=== PATIENT | female | born 1955 | race Caucasian/White ===

== ENCOUNTER → 2023-09-08 11:50 | Outpatient (REF) | payer OTHER, SELFPAY | LOC: RAD 11:50 | PROVIDERS: ATTENDING PHYSICIAN Nurse Practitioner Family | DX: M25.571 Pain in right ankle and joints of right foot (principal) | CPT/HCPCS: 73630 ==

== ENCOUNTER → 2023-09-17 11:00 | Outpatient (REF) | payer OTHER, SELFPAY | LOC: WDC 11:00 | PROVIDERS: ATTENDING PHYSICIAN Obstetrics & Gynecology; FAMILY PHYSICIAN Family Medicine | DX: Z12.31 Encounter for screening mammogram for malignant neoplasm of breast (principal) | CPT/HCPCS: 77063; 77067 ==

== ENCOUNTER 2023-10-13 07:28 | Inpatient (IN) | payer OTHER, SELFPAY ==
[2023-10-13 08:06] VITALS: BMI 23.6
[2023-10-13 08:12] VITALS: BP 131/88
[2023-10-13 08:51] LABS: Hematocrit 37.4 % (37.0-47.0); Hemoglobin 13.3 g/dL (12.0-16.0); Mean Corp Hgb Conc. 35.6 g/dL (33.0-37.0); Mean Corpuscular Hgb 32.9 pg (27.0-31.0); Mean Corpuscular Volume 92.6 fL (81.0-99.0); Mean Platelet Volume 9.5 fL (7.4-10.4); Platelet Count 267 10^3/uL (130-400); Red Blood Cell Count 4.04 10^6/uL (4.20-5.40); Red Cell Dist. Width 12.5 % (11.5-14.5); White Blood Cell Count 4.8 10^3/uL (4.8-10.8)
[2023-10-13] MEDS: ELIQUIS PO (08:59)
[2023-10-13] MEDS: PROTONIX PO (09:00)
[2023-10-13 09:04] LABS: ALT (SGPT) 27 U/L (0-35); AST (SGOT) 34 U/L (14-36); Albumin 4.7 g/dl (3.5-5.0); Alkaline Phosphatase 76 U/L (38-126); Blood Urea Nitrogen 16 mg/dl (7-17); Calcium 9.6 mg/dl (8.4-10.2); Carbon Dioxide 29 mmol/L (22-30); Chloride 99 mmol/L (98-107); Estimated Creatinine Clearance 76 ml/min; Glucose 102 mg/dl (70-99); Magnesium 2.3 mg/dl (1.6-2.3); Potassium 3.9 mmol/L (3.5-5.1); Sodium 134 mmol/L (135-145); Total Bilirubin 0.9 mg/dl (0.2-1.3); Total Protein 7.5 g/dl (6.3-8.2); eGFR > 60.00
[2023-10-13] MEDS: BETAPACE 160 MG PO ×2 (09:26→20:35)
[2023-10-13 09:48] VITALS: BMI 23.6
--- NOTE | 2023-10-13 09:59 | CM ---
Reviewed chart. Met with Mrs. Collins to review discharge plans. She states prior to admission she resides with her spouse in a two story home with three steps to enter. She states she has a full flight of steps to get to bedroom/full bathroom. She
states she has a powder room on the first floor. She states prior to admission she was independent with ambulation and adls. She states she does not have any DME in the home. She states she has a prescription plan and uses [facility]. Medical
work-up in progress. The discharge plan is to return home with her spouse when medically stable.
--- NOTE | 2023-10-13 10:59 | PTCARENOTE ---
Pt received as a direct admit this am for increased dose Sotolol. Ecg and labs completed. Pt denies any chest pain or sob. OOB ad zoey in the room. Monitor atach, rate in 70's to 80's.
[2023-10-13 11:39] VITALS: BP 126/87
--- NOTE | 2023-10-13 13:01 | CON.CAR ---
Addendum entered and electronically signed by Ned Azul MD 10/13/23 16:48:
Patient seen and examined
Agree with ITZEL Farias's notes and assessment
Agree ITZEL Farias's plan
ECGs reviewed with 2-1 atypical atrial tachycardia
Telemetry reviewed with rate control
QTc less than 500 ms after second dose of 160 mg sotalol
Examination:
H&T normocephalic atraumatic
JVP 6
Cor regular
Lungs:/Bilaterally
Abdomen soft nontender positive and sounds
Alert and x 3
PCP: Wallace Umanzor
CDY: Matt Christie
Impression:
Direct admission for higher dose sotalol loading
Paroxysmal Afib/tach
s/p PVI 09/2020
s/p PVI 01/21/21
s/p PVI 12/31/22Chronic sotalol therapy since 2020
Chronic Eliquis OAC
Markedly dilated RA/LA
s/p LUX ILR
Echo 05/26/23: EF 55%, severely dilated atria, mod MR
Plan:
-Patient came to today for sotalol loading. Patient was seen in the office 09/11/23 and as noted to be in atrial tachycardia. Patient has a h/o paroxysmal Afib/tach. Patient had PVIs 09/2020, 01/2021 and 12/31/22. Patient was loaded with sotalol after
her last PVI and she currently takes sotalol 120 mg BID. Patient reports that she is less fatigued in Atach vs Afib, but that overall her exercise tolerance is reduced on sotalol. Patient has not missed any doses of Eliquis. She denies chest pain or
SOB.
-QTc 454 ms by ECG on admission reviewed by me, she did not take her usual dose of sotalol 120 mg BID on the morning of admission. Patient was then given sotalol 160 mg x1 on 10/13/23 AM and her QTc was stable at 457 ms by ECG 2 hours after that dose.
Patient remains in atrial tachycardia.
-Patient is concerned about increased exercise intolerance or fatigue with higher dose sotalol. Will review with EP in AM, but patient recalls from 09/11/23 office visit that if she feels poorly on higher dose sotalol then she could simply go back to
the lower dose.
-CV in AM if she remains in Atach
Addendum entered and electronically signed by Stella Farias PA-C 10/13/23 16:04:
.
Original Note:
Consultation
Consultation Request
Date/Time Consultation Requested: 10/13/23
Date/Time Consultation Performed: 10/13/23
Performing Provider: Dr. Garcia
Reason for Consultation: Direct admission for increased dose sotalol loading
Medical History
-
History of Present Illness:
Patient came to today for sotalol loading. Patient was seen in the office 09/11/23 and as noted to be in atrial tachycardia. Patient has a h/o paroxysmal Afib/tach. Patient had PVIs 09/2020, 01/2021 and 12/31/22. Patient was loaded with sotalol after
her last PVI and she currently takes sotalol 120 mg BID. Patient reports that she is less fatigued in Atach vs Afib, but that overall her exercise tolerance is reduced on sotalol. Patient has not missed any doses of Eliquis. She denies chest pain or
SOB.
PMH:
Paroxysmal Afib/tach
s/p PVI 09/2020
s/p PVI 01/21/21
s/p PVI 12/31/22
Chronic sotalol therapy since 2020
Chronic Eliquis OAC
Markedly dilated RA/LA
s/p LUX ILR
Past Medical History
Past Medical History: Other (in HPI)
Past Surgical History: Cardiac (PVI) and Orthopedic
Family History
Family History: Cancer, Diabetes and Other (CHF, CKD)
Allergies / Home Medications
Allergy/AdvReac Type Severity Reaction Status Date / Time
latex Allergy face red Verified 12/31/22 06:34
and
swelling
Sulfa (Sulfonamide Allergy nausea, Verified 12/31/22 06:34
Antibiotics) vomiting
venom-honey bee Allergy Swelling Verified 12/31/22 06:34
[bee venom (honey bee)]
wheat Allergy Rash Verified 12/31/22 06:34
Medication Instructions Recorded Confirmed Type
apixaban 5 mg tablet (Eliquis) 5 mg PO BID Blood clot 08/22/20 10/13/23 History
prevention/tx
red yeast rice 600 mg tablet 3 tablets PO HS Supplement 08/22/20 10/13/23 History
ascorbic acid (vitamin C) 500 mg 500 mg PO HS Supplement 12/20/20 10/13/23 History
tablet (Vitamin C)
vitamin B complex 1 tab PO HS Supplement 01/09/21 10/13/23 History
Magnesium Calcium 250/500 1 tab PO HS 05/13/21 10/13/23 History
Zinc 30 mg PO HS 05/13/21 10/13/23 History
ubiquinol 200 mg-B12 5 mg-folic 1 cap PO QHS 12/31/22 10/13/23 History
acid 0.8 mg-resveratrol 400 mg
capsule
YS-nhrjlapxvyt-afmerg ox-Zn ER 500 1 tab PO BID 04/03/23 10/13/23 History
mcg-750 mg-1.5 mg-25 mg tablet,ER
Probiotic 1 tab PO DAILY 04/03/23 10/13/23 History
calcium carb-Ca gluc 500 mg 1 tab PO DAILY 04/03/23 10/13/23 History
calcium-magnesium ox-Mg gluc 250
mg tablet (Calcium Magnesium)
glucosamine sulfate 750 mg tablet 750 mg PO DAILY 04/03/23 10/13/23 History
sotalol 120 mg tablet (Sotalol AF) 120 mg PO DAILY 04/03/23 10/13/23 History
vitamin D3 250 mcg (10,000 1 cap PO DAILY 04/03/23 10/13/23 History
unit)-vitamin K2 45 mcg capsule
famotidine 40 mg tablet 40 mg PO BID 10/13/23 10/13/23 History
pantoprazole 40 mg tablet,delayed 40 mg PO DAILY 10/13/23 10/13/23 History
release
sucralfate 1 gram tablet (Carafate) 1 g PO HS 10/13/23 10/13/23 History
Review of Systems
-
History Source: Patient
All other systems: Negative unless noted
Physical Exam
Vital Signs
Temp Pulse Resp BP Pulse Ox
97.8 F 75 16 131/88 100
10/13/23 11:35 10/13/23 11:35 10/13/23 11:35 10/13/23 08:12 10/13/23 11:35
GEN: No distress, AAOx3
HEENT: EOMI, MMM
LUNGS: CTA B/L, no wheezes/rales
CV: Reg, S1/S2, no murmur
ABD: soft, BS+, NT, ND
EXT: No clubbing, cyanosis, lesions or edema B/L
NEURO: Gross non-focal
SKIN: Warm, dry and pink. No rash
Lab Results
10/13/23 08:46
10/13/23 08:46
Impression / Plan
-
PCP: Wallace Umanzor
CDY: Matt Christie
Impression:
Direct admission for higher dose sotalol loading
Paroxysmal Afib/tach
s/p PVI 09/2020
s/p PVI 01/21/21
s/p PVI 12/31/22
Chronic sotalol therapy since 2020
Chronic Eliquis OAC
Markedly dilated RA/LA
s/p LUX ILR
Echo 05/26/23: EF 55%, severely dilated atria, mod MR
Plan:
-Patient came to today for sotalol loading. Patient was seen in the office 09/11/23 and as noted to be in atrial tachycardia. Patient has a h/o paroxysmal Afib/tach. Patient had PVIs 09/2020, 01/2021 and 12/31/22. Patient was loaded with sotalol after
her last PVI and she currently takes sotalol 120 mg BID. Patient reports that she is less fatigued in Atach vs Afib, but that overall her exercise tolerance is reduced on sotalol. Patient has not missed any doses of Eliquis. She denies chest pain or
SOB.
-QTc 454 ms by ECG on admission reviewed by me, she did not take her usual dose of sotalol 120 mg BID on the morning of admission. Patient was then given sotalol 160 mg x1 on 10/13/23 AM and her QTc was stable at 457 ms by ECG 2 hours after that dose.
Patient remains in atrial tachycardia.
-Patient is concerned about increased exercise intolerance or fatigue with higher dose sotalol. Will review with EP in AM, but patient recalls from 09/11/23 office visit that if she feels poorly on higher dose sotalol then she could simply go back to
the lower dose.
-CV in AM if she remains in Atach
[2023-10-13 15:59] VITALS: BP 119/72
[2023-10-13 18:29] VITALS: BP 122/74
[2023-10-13] MEDS: ELIQUIS 5 MG PO (20:35)
[2023-10-13 21:26] VITALS: BP 148/97
--- NOTE | 2023-10-13 22:30 | PTCARENOTE ---
at 21:24 pt tele alarming asystole with 5.24 sec pause. when checking pt she stated she 'felt really funny' denies CP, dizziness or lightheadedness. bp 148/97. HR 70s . EKG completed at 2230 showing SR with 1st degree AV block, QTc= 440.
[2023-10-13 22:31] VITALS: BP 137/76
[2023-10-13] MEDS: TYLENOL 1000 MG PO (22:43)
[2023-10-13] MEDS: CARAFATE 1 GRAM PO (22:45)
[2023-10-14] VITALS (7 sets, daily range): BP systolic 93–120; BP diastolic 60–107; BMI 23.6
[2023-10-14 05:06] LABS: Blood Urea Nitrogen 11 mg/dl (7-17); Calcium 9.2 mg/dl (8.4-10.2); Carbon Dioxide 24 mmol/L (22-30); Chloride 101 mmol/L (98-107); Estimated Creatinine Clearance 76 ml/min; Glucose 94 mg/dl (70-99); Potassium 4.5 mmol/L (3.5-5.1); Sodium 132 mmol/L (135-145); eGFR > 60.00
[2023-10-14 05:55] LABS: Hepatitis C Antibody Negative (Negative)
--- NOTE | 2023-10-14 08:17 | W.PN.CARDCBS ---
Addendum entered and electronically signed by Adán Christie MD 10/14/23 14:04:
Patient seen, interviewed and examined by me.
Well-appearing, no acute distress
Regular rate and rhythm with normal S1 and S2, no S3 no S4. There is a grade 1/6 apical holosystolic murmur and no rubs. PMI is normally placed.
Lungs are clear to auscultation bilaterally without wheezes rales or rhonchi.
Abdomen soft nontender nondistended with normoactive bowel sounds
Extremities show trace pretibial edema bilaterally no clubbing or cyanosis.
Neurologic exam is grossly nonfocal.
Agree with advanced practice professionals assessment and plan as noted below.
Reviewed telemetry findings with the patient. She did have a 5.2-second pause yesterday evening which correlated to symptoms of dizziness while she was seated in her room.
I am concerned that further increased antiarrhythmic drug therapy with sotalol will worsen her symptomatic pauses. We discussed options such as moving towards permanent pacemaker implantation which would allow us to more safely treat her with
antiarrhythmic drug therapy but she tells me she does not want to have permanent pacemaker placed particular because we are uncertain whether increased dose of sotalol will truly be effective long-term for her. We also discussed simply allowing her
to remain in her atrial tachycardia which she has tolerated quite well. She strongly prefers this latter option. Towards that end we will discontinue sotalol. She will need something for rate control so we will start Toprol-XL 25 mg twice daily
starting this evening as we continue to follow her on telemetry monitoring tonight. If she has no further significant pauses she can be discharged home with long-term plan being allowing persistent atrial tachycardia. All of her questions have
been answered.
Original Note:
Today's Communication / Plan
-
Stop sotalol
Start Toprol XL tonight
Cancel CV and patient to remain in rate controlled Atach
Observe on tele overnight and if stable d/c to home in AM
Impression / Plan
-
PCP: Wallace Umanzor
CDY: Matt Christie
Impression:
Direct admission for higher dose sotalol loading
Sinus pause 10/13/23 late PM
Paroxysmal Afib/tach
s/p PVI 09/2020
s/p PVI 01/21/21
s/p PVI 12/31/22
Chronic sotalol therapy since 2020
Chronic Eliquis OAC
Markedly dilated RA/LA
s/p LUX ILR
Echo 05/26/23: EF 55%, severely dilated atria, mod MR
Plan:
-Patient noted to have a 5.2 sec pause on tele 10/13/23 at 2230, she felt lightheaded at the time, but no syncope. Patient had received her 2nd dose of sotalol 160 mg BID at 2034.
-Will stop sotalol and plan to leave patient in rate controlled atrial tachycardia. Cancel CV
-Start Toprol XL 25 mg BID 10/14/23 PM
-Continue to follow on tele until 10/15/23
-Cont usual dose of Eliquis 5 mg BID, no missed doses
HPI: Patient came to today for sotalol loading. Patient was seen in the office 09/11/23 and as noted to be in atrial tachycardia. Patient has a h/o paroxysmal Afib/tach. Patient had PVIs 09/2020, 01/2021 and 12/31/22. Patient was loaded with sotalol
after her last PVI and she currently takes sotalol 120 mg BID. Patient reports that she is less fatigued in Atach vs Afib, but that overall her exercise tolerance is reduced on sotalol. Patient has not missed any doses of Eliquis. She denies chest
pain or SOB.
Progress Note - Pediatric Physical Therapist
Subjective
Date of Service: October 14, 2023
She felt lightheaded last night, but better now
Objective
Labs:
10/13/23 08:46
10/14/23 04:00
Labs
Hgb 13.3 g/dL (12.0-16.0) 10/13/23 08:46
Hct 37.4 % (37.0-47.0) 10/13/23 08:46
Plt Count 267 10^3/uL (130-400) 10/13/23 08:46
Sodium 132 mmol/L (135-145) L 10/14/23 04:00
Potassium 4.5 mmol/L (3.5-5.1) 10/14/23 04:00
BUN 11 mg/dl (7-17) 10/14/23 04:00
Creatinine 0.5 mg/dL (0.6-1.0) L 10/14/23 04:00
Glucose 94 mg/dl (70-99) 10/14/23 04:00
Vital Signs and I&O:
Vital Signs
Temp Pulse Resp BP Pulse Ox
98.5 F 78 20 102/85 97
10/14/23 07:19 10/14/23 08:00 10/14/23 07:19 10/14/23 07:30 10/14/23 07:19
Vital Signs
Temp Pulse Resp BP Pulse Ox
98.5 F 78 20 102/85 97
10/14/23 07:19 10/14/23 08:00 10/14/23 07:19 10/14/23 07:30 10/14/23 07:19
Physical Exam
Physical Exam
GEN: No distress, AAOx3
HEENT: EOMI, MMM
LUNGS: CTA B/L, no wheezes/rales
CV: Reg, S1/S2, no murmur
ABD: soft, BS+, NT, ND
EXT: No clubbing, cyanosis, lesions or edema B/L
NEURO: Gross non-focal
SKIN: Warm, dry and pink. No rash
[2023-10-14] MEDS: BETAPACE 160 MG PO (08:19)
[2023-10-14] MEDS: PROTONIX 40 MG PO (08:19)
[2023-10-14] MEDS: ELIQUIS 5 MG PO ×2 (08:19→20:18)
[2023-10-14] MEDS: PEPCID 40 MG PO (09:08)
[2023-10-14] MEDS: CARAFATE 1 GRAM PO (20:18)
[2023-10-14] MEDS: TOPROL XL 25 MG PO (20:18)
[2023-10-14] MEDS: TYLENOL 1000 MG PO (20:22)
[2023-10-15 04:15] VITALS: BP 116/76
[2023-10-15 05:26] LABS: Blood Urea Nitrogen 13 mg/dl (7-17); Calcium 9.6 mg/dl (8.4-10.2); Carbon Dioxide 28 mmol/L (22-30); Chloride 97 mmol/L (98-107); Estimated Creatinine Clearance 76 ml/min; Glucose 97 mg/dl (70-99); Sodium 134 mmol/L (135-145); eGFR > 60.00
[2023-10-15 07:31] VITALS: BP 120/78
[2023-10-15] MEDS: PROTONIX 40 MG PO (07:46)
[2023-10-15] MEDS: TOPROL XL 25 MG PO (07:46)
[2023-10-15] MEDS: PEPCID 40 MG PO (07:46)
[2023-10-15] MEDS: ELIQUIS 5 MG PO (07:46)
--- NOTE | 2023-10-15 08:38 | PTCARENOTE ---
Pt received from security shift supervisor RN. Mario in chair. Atach on clinical research monitor. Heart sounds regular. VSS. Pt without complaint at this time. Assessment documented. Possible discharge later today.
--- NOTE | 2023-10-15 10:14 | CM ---
Reviewed chart. Met with Mrs. Collins to review discharge plans. She states she is feeling well and hoping to go home soon. Prior to admission she resides with her spouse in a two story home with three steps to enter. She has a full flight of steps
to get o bedroom/full bathroom. She has a powder room on the first floor. Prior to admission she was independent with ambulation and adls. She states she has a prescription plan and uses [facility]. Medical work-up in progress. The discharge
plan is to return home with her spouse when medically stable.
--- NOTE | 2023-10-15 11:04 | W.PN.CARDCBS ---
Today's Communication / Plan
-
Stable for discharge
Rate control and anticoagulation for atrial fibrillation
Less than 30 minutes total discharge time
Impression / Plan
-
PCP: Wallace Umanzor
CDY: Matt Christie
Impression:
Direct admission for higher dose sotalol loading
Sinus pause 10/13/23 late PM
Paroxysmal Afib/tach
s/p PVI 09/2020
s/p PVI 01/21/21
s/p PVI 12/31/22
Chronic sotalol therapy since 2020
Chronic Eliquis OAC
Markedly dilated RA/LA
s/p LUX ILR
Echo 05/26/23: EF 55%, severely dilated atria, mod MR
Plan:
-Sotalol has now been discontinued in favor of rate control with metoprolol succinate of atrial fibrillation. Patient noted to have a 5.2 sec pause on tele 10/13/23 at 2230, she felt lightheaded at the time, but no syncope. Patient had received her
2nd dose of sotalol 160 mg BID at 2034.
-Telemetry stable without bradycardia arrhythmias or pauses overnight.
-Cont usual dose of Eliquis 5 mg BID, no missed doses
Stable to discharge home. Follow-up arranged. Less than 30 minutes total discharge time.
HPI: Patient came to today for sotalol loading. Patient was seen in the office 09/11/23 and as noted to be in atrial tachycardia. Patient has a h/o paroxysmal Afib/tach. Patient had PVIs 09/2020, 01/2021 and 12/31/22. Patient was loaded with sotalol
after her last PVI and she currently takes sotalol 120 mg BID. Patient reports that she is less fatigued in Atach vs Afib, but that overall her exercise tolerance is reduced on sotalol. Patient has not missed any doses of Eliquis. She denies chest
pain or SOB.
Progress Note - Aeronautical Drafter
Subjective
Date of Service: October 15, 2023
She denies chest pain and palpitations.
Objective
Labs:
10/13/23 08:46
10/15/23 04:31
Labs
Hgb 13.3 g/dL (12.0-16.0) 10/13/23 08:46
Hct 37.4 % (37.0-47.0) 10/13/23 08:46
Plt Count 267 10^3/uL (130-400) 10/13/23 08:46
Sodium 134 mmol/L (135-145) L 10/15/23 04:31
Potassium 4.0 mmol/L (3.5-5.1) 10/15/23 04:31
BUN 13 mg/dl (7-17) 10/15/23 04:31
Creatinine 0.5 mg/dL (0.6-1.0) L 10/15/23 04:31
Glucose 97 mg/dl (70-99) 10/15/23 04:31
Vital Signs and I&O:
Vital Signs
Temp Pulse Resp BP Pulse Ox
98.1 F 79 20 120/78 100
10/15/23 07:30 10/15/23 07:46 10/15/23 07:30 10/15/23 07:46 10/15/23 07:30
Vital Signs
Temp Pulse Resp BP Pulse Ox
98.1 F 79 20 120/78 100
10/15/23 07:30 10/15/23 07:46 10/15/23 07:30 10/15/23 07:46 10/15/23 07:30
Physical Exam
Physical Exam
General: Well developed, well nourished in NAD.
Heart: Non displaced PMI, irregularly irregular, no murmurs, No S3, S4, no rubs.
Extremities: No clubbing, cyanosis or edema bilaterally.
--- NOTE | 2023-10-15 12:46 | W.DS.TRANS ---
DC Summary - Beauty Specialist
-
Discharge Instructions:
Sleep Apnea Risk Low
Discharge Diagnosis/Procedures Direct admission for sotalol increased dose
loading, sinus pause 5.2 seconds,
discontinuation of sotalol due to pause,
persistent to permanent atrial tachycardia
Diet No restrictions
Activity No restrictions
Driving Restrictions As prior to admission
Bathing Restrictions None
Instructions:
Stand-Alone Forms:
Changes to Home Medications: Yes
Discharge Medications:
DC Medications w/original date entered in [employer]
apixaban 5 mg tablet (Eliquis) 5 mg PO BID Blood clot prevention/tx 08/22/20
red yeast rice 600 mg tablet 3 tablets PO HS Supplement 08/22/20
ascorbic acid (vitamin C) 500 mg tablet (Vitamin C) 500 mg PO HS Supplement 12/20/20
vitamin B complex 1 tab PO HS Supplement 01/09/21
Magnesium Calcium 250/500 1 tab PO HS 05/13/21
Zinc 30 mg PO HS 05/13/21
ubiquinol 200 mg-B12 5 mg-folic acid 0.8 mg-resveratrol 400 mg capsule 1 cap PO QHS 12/31/22
QP-aywlbfrsske-rmvoyn ox-Zn ER 500 mcg-750 mg-1.5 mg-25 mg tablet,ER 1 tab PO BID 04/03/23
Probiotic 1 tab PO DAILY 04/03/23
calcium carb-Ca gluc 500 mg calcium-magnesium ox-Mg gluc 250 mg tablet (Calcium Magnesium) 1 tab PO DAILY 04/03/23
glucosamine sulfate 750 mg tablet 750 mg PO DAILY 04/03/23
vitamin D3 250 mcg (10,000 unit)-vitamin K2 45 mcg capsule 1 cap PO DAILY 04/03/23
famotidine 40 mg tablet 40 mg PO BID 10/13/23
pantoprazole 40 mg tablet,delayed release 40 mg PO DAILY 10/13/23
sucralfate 1 gram tablet (Carafate) 1 g PO HS 10/13/23
metoprolol succinate 25 mg tablet,extended release 24 hr 25 mg PO BID Arrhythmia #60 tabs 10/15/23
Home Medication Changes
Stopped sotalol
New to Toprol XL
Pending Results: No
== END 2023-10-15 13:20 | disposition home or self-care (01) | DRG 310 ==
LOC: IVU 07:28
PROVIDERS: Physician Assistant Medical; ADMITTING PHYSICIAN Nuclear Medicine Nuclear Cardiology; FAMILY PHYSICIAN Family Medicine
DX: I48.0 Paroxysmal atrial fibrillation (principal); Z79.01 Long term (current) use of anticoagulants
CPT/HCPCS: 80048; 80053; 83735; 85027; 86803; 93005

== ENCOUNTER → 2023-10-18 08:12 | Outpatient (REF) | payer OTHER, SELFPAY | LOC: MRI 08:12 | PROVIDERS: ATTENDING PHYSICIAN Specialist; FAMILY PHYSICIAN Family Medicine | DX: M25.561 Pain in right knee (principal) | CPT/HCPCS: 73721 ==

== ENCOUNTER → 2024-06-07 15:46 | Outpatient (REF) | payer OTHER, SELFPAY | LOC: HWRCS 15:46 | PROVIDERS: ATTENDING PHYSICIAN Internal Medicine Cardiovascular Disease; FAMILY PHYSICIAN Family Medicine | DX: I48.0 Paroxysmal atrial fibrillation (principal) | CPT/HCPCS: 93306 ==

== ENCOUNTER → 2024-06-08 15:06 | Outpatient (REF) | payer OTHER, SELFPAY | LOC: RAD 15:06 | PROVIDERS: ATTENDING PHYSICIAN Family Medicine | DX: I65.23 Occlusion and stenosis of bilateral carotid arteries (principal) | CPT/HCPCS: 93880 ==

== ENCOUNTER → 2024-08-22 10:53 | Outpatient (REF) | payer OTHER, SELFPAY | LOC: WDC 10:53 | PROVIDERS: ATTENDING PHYSICIAN Obstetrics & Gynecology; FAMILY PHYSICIAN Family Medicine | DX: R92.2 Inconclusive mammogram (principal) | CPT/HCPCS: 76641 ==

== ENCOUNTER 2024-08-29 10:01 | Day surgery (SDC) | payer OTHER, SELFPAY ==
[2024-08-29] VITALS (7 sets, daily range): BP systolic 141–158; BP diastolic 77–108
[2024-08-29 10:28] LABS: Hematocrit 39.8 % (37.0-47.0); Hemoglobin 13.6 g/dL (12.0-16.0); Mean Corp Hgb Conc. 34.2 g/dL (33.0-37.0); Mean Corpuscular Hgb 31.9 pg (27.0-31.0); Mean Corpuscular Volume 93.4 fL (81.0-99.0); Mean Platelet Volume 9.8 fL (7.4-10.4); Platelet Count 247 10^3/uL (130-400); Red Blood Cell Count 4.26 10^6/uL (4.20-5.40); Red Cell Dist. Width 12.8 % (11.5-14.5); White Blood Cell Count 6.2 10^3/uL (4.8-10.8)
[2024-08-29 10:41] LABS: ALT (SGPT) 24 U/L (0-35); AST (SGOT) 34 U/L (14-36); Albumin 4.7 g/dl (3.5-5.0); Alkaline Phosphatase 67 U/L (38-126); Blood Urea Nitrogen 13 mg/dl (7-17); Calcium 9.7 mg/dl (8.4-10.2); Carbon Dioxide 27 mmol/L (22-30); Chloride 96 mmol/L (98-107); Glucose 95 mg/dl (70-99); Potassium 4.7 mmol/L (3.5-5.1); Sodium 132 mmol/L (135-145); Total Protein 7.5 g/dl (6.3-8.2); eGFR > 60.00
--- NOTE | 2024-08-29 14:21 | ITS.CL.IMPLP ---
Decal Decorator - Implant Loop
Implant Loop
Procedure Report:
IMPLANTED LOOP MONITOR REMOVAL
Date of Procedure: August 29, 2024
Primary Care Provider: Dr. Wallace Umanzor
PROCEDURES:
1. Removal of implanted loop recorder
INDICATION FOR PROCEDURE:
1. Loop Recorder at end of battery longevity
After informed consent was obtained,'time out' was called and confirmed, the patient was prepped and draped in a sterile fashion.
SEDATION: Via the anesthesia department with conscious sedation
Lidocaine with epi was used for local anesthesia. An incision was made along the prior incision and the Linq monitor was carefully dissected from the pocket. The pocket was liberally irrigated with antibiotic solution. The pocket was closed in
the typical fashion.
COMPLICATIONS:
CONCLUSIONS:
1. Removal of implanted loop recorder ([place] [employer] Lux).
RECOMMENDATIONS:
In-Office wound check in 7-14 days.
Copy to: Dr. Wallace Umanzor
--- NOTE | 2024-08-29 14:23 | ITS.CL.IMPLP ---
Monorail Crane Operator - Implant Loop
Implant Loop
Procedure Report:
Date of Procedure: August 29, 2024
Primary Care Provider: Dr. Wallace Umanzor
Procedure: Insertable Loop Recorder Implantation
Indication:
Atrial fibrillation
Procedure:
The patient was brought to the procedure area in a fasting state. The anterior chest was prepped and draped in standard sterile fashion. The area of previous loop recorder implantation is accessed for implantation of the new device. The loop
recorder was loaded into the tunneling device. A tunnel was created in the subcutaneous tissue at a 45� angle along the coronal plane away from the sternum and towards the left flank. The loop recorder was delivered into the subcutaneous space. The
tunneling device was removed. 5-0 absorbable stitch was used to close the wound. Adequate signal was confirmed. The estimated blood loss was < 1 cc. A clean dressing was placed over the wound.
There were no complications.
Implant:
[place] [employer] Lux Dx II+
Conclusion: Uncomplicated implantation of loop recorder.
Recommendation: Routine ILR care.
Copy: Dr. Wallace Umanzor
== END 2024-08-29 15:20 | disposition home or self-care (01) ==
LOC: CATH 10:01
PROVIDERS: ATTENDING PHYSICIAN Internal Medicine Cardiovascular Disease; FAMILY PHYSICIAN Family Medicine
DX: Z09 Encounter for follow-up examination after completed treatment for conditions other than malignant neoplasm (principal); I48.91 Unspecified atrial fibrillation; Z79.01 Long term (current) use of anticoagulants
CPT/HCPCS: 33285; 80053; 85027; C1764

== ENCOUNTER → 2024-08-30 08:24 | Outpatient (REF) | payer OTHER, SELFPAY | LOC: PAVMRI 08:24 | PROVIDERS: ATTENDING PHYSICIAN Nurse Practitioner Family; FAMILY PHYSICIAN Family Medicine | DX: M54.16 Radiculopathy, lumbar region (principal) | CPT/HCPCS: 72148 ==

== ENCOUNTER → 2024-08-31 07:51 | Outpatient (REF) | payer OTHER, SELFPAY ==
--- NOTE | 2024-08-31 13:46 | OID.BR.INTR ---
[facility] Breast Navigator - Initial
- -
Date of Contact: 08/31/24
Met with patient. Patient given written information on navigator services available at [facility]. Will follow up as needed per protocol.
== END ==
LOC: WDC 07:51
PROVIDERS: ATTENDING PHYSICIAN Obstetrics & Gynecology; FAMILY PHYSICIAN Family Medicine
DX: N63.11 Unspecified lump in the right breast, upper outer quadrant (principal)
CPT/HCPCS: 88305; 19083; 88341; 88342; 88360; A4648

== ENCOUNTER → 2024-09-02 13:10 | Outpatient (REF) | payer OTHER, SELFPAY | LOC: HWRAD 13:10 | PROVIDERS: ATTENDING PHYSICIAN Nurse Practitioner Family; FAMILY PHYSICIAN Family Medicine | DX: R10.31 Right lower quadrant pain (principal) | CPT/HCPCS: 76882 ==

== ENCOUNTER → 2024-09-13 16:38 | Outpatient (REF) | payer OTHER, SELFPAY | LOC: MRI 16:38 | PROVIDERS: ATTENDING PHYSICIAN Surgery; FAMILY PHYSICIAN Family Medicine; REFERRING PHYSICIAN Obstetrics & Gynecology | DX: C50.411 Malignant neoplasm of upper-outer quadrant of right female breast (principal); Z17.0 Estrogen receptor positive status [ER+] | CPT/HCPCS: 77049; A9585 ==

== ENCOUNTER 2024-09-15 06:22 | Day surgery (SDC) | payer OTHER, SELFPAY | END 2024-09-15 10:06 | disposition home or self-care (01) | LOC: GI 06:22 | PROVIDERS: ATTENDING PHYSICIAN Internal Medicine | DX: Z12.11 Encounter for screening for malignant neoplasm of colon (principal); D12.3 Benign neoplasm of transverse colon; K57.30 Diverticulosis of large intestine without perforation or abscess without bleeding; C50.919 Malignant neoplasm of unspecified site of unspecified female breast; Z86.0101 Personal history of adenomatous and serrated colon polyps | CPT/HCPCS: 45380; 88305 ==

== ENCOUNTER → 2024-09-19 12:38 | Outpatient (REF) | payer OTHER, SELFPAY | LOC: WDC 12:38 | PROVIDERS: ATTENDING PHYSICIAN Obstetrics & Gynecology; FAMILY PHYSICIAN Family Medicine | DX: Z12.31 Encounter for screening mammogram for malignant neoplasm of breast (principal) | CPT/HCPCS: 77063; 77067 ==

== ENCOUNTER → 2024-10-03 08:38 | Outpatient (REF) | payer OTHER, SELFPAY | LOC: WDC 08:38 | PROVIDERS: ATTENDING PHYSICIAN Surgery | DX: C50.411 Malignant neoplasm of upper-outer quadrant of right female breast (principal) | CPT/HCPCS: 38792; 76942; A9541 ==

== ENCOUNTER 2024-10-04 07:54 | Inpatient (IN) | payer OTHER, SELFPAY ==
[2024-09-29 13:48] VITALS: BMI 24.5
[2024-09-29 15:12] LABS: Prealbumin (Transthyretin) 22.3 mg/dl (17.6-36.0)
[2024-09-29 15:25] LABS: Vitamin D, 25-OH*** 33.7 ng/mL (30-80)
--- NOTE | 2024-09-30 14:33 | PTCARENOTE ---
Abnormal ECG 09/29/24, reviewed by Dr Harding, no further intervention requested.
[2024-10-04] VITALS (12 sets, daily range): BP systolic 0–146; BP diastolic 67–90; BMI 24.5
[2024-10-04] MEDS: LOVENOX 40 MG SC (08:02)
[2024-10-04] MEDS: TYLENOL 1000 MG PO ×3 (08:03→22:46)
[2024-10-04] MEDS: NORMOSOL-R/PLASMALYTE-A 1000 IV (08:03)
--- NOTE | 2024-10-04 08:30 | W.SUR.PREOP ---
Pre-Operative Surgical Note
-
I have examined this patient prior to the performance of the scheduled procedure.
The patient's condition is unchanged from the time of the current History and
Physical and the patient is able to undergo the scheduled procedure.
--- NOTE | 2024-10-04 11:38 | W.IMMPOSTOP ---
Surgical Immed Post Op Note
-
Primary Surgeon: Vinnie
Assisting Surgeon: None
Pre-op Diagnosis: Right breast ca
Post-op Diagnosis: Right breast ca
Procedure Performed: Bilateral skin-sparing mastectomies, right sentinel lymph node mapping and biopsy
Anesthesia Type: LMA
Specimen / Cultures: Bilateral breasts, right sentinel nodes
Estimated Blood Loss: 20cc
Complications: None
Operative Findings: Negative frozen section on lymph nodes
--- NOTE | 2024-10-04 11:40 | OR.RPT ---
Operative Report
Operative Report
Operative Date: 10/04/24
Surgeon: juanita
Pre-Operative DX: right breast ca
Post-Opreative DX: right breast ca
Procedure: Bilateral skin-sparing mastectomies and right sentinel lymph node mapping and biopsy
The patient is a 69-year-old female with right infiltrating lobular carcinoma multicentric who presents for bilateral mastectomies, right sentinel lymph node mapping and biopsy, and immediate reconstruction with Dr. Martínez. On the day prior to the
procedure, the patient presented to the [facility] where technetium radiotracer was delivered into the right breast parenchyma. On the day of surgery she presented to the same-day surgery unit where she was prepped for surgery. She
verified site and procedure. DVT and antibiotic prophylaxis were administered and the patient was taken to the operating room.
In the supine position general anesthesia was induced. A Govea catheter was inserted using aseptic technique and both breasts were prepped and draped in the usual sterile fashion. An appropriate timeout procedure was performed by all staff members.
The left breast was approached first and a keyhole incision was marked by plastic surgery and was entered sharply with the blade. Skin flaps were elevated using the PlasmaBlade. Larger vessels were controlled with 3-0 silk tie. Dissection was
carried down to the pectoralis fascia and the breast was removed off of the chest wall in a superior-medial to inferior-lateral direction. Time out of body was noted and the specimen was oriented for the pathologist. The patient had a cardiac LINQ
monitor in the subcutaneous tissue of the upper inner quadrant of the left breast. This was preserved and was not exposed during the dissection. A moist pack was placed in the resection bed and plastic surgery entered to begin the reconstructive
portion of the procedure.
The right side was approached in the same fashion with the same incision and elevation of skin flaps. This breast was taken off the chest wall, time out of body was noted and the specimen was oriented for the pathologist. Clavipectoral fascia was
incised with the cautery and using the gamma probe, two sentinel node packets were encountered and excised. Feeding vessels were clamped with 3-0 silk. After the removal of the lymph nodes there was a greater than 4 fold reduction to background
count. Frozen section analysis on the nodes was negative. Hemostasis was verified. A moist pack was placed in the operative bed and plastic surgery continued with the reconstructive portion of the procedure\\([id number], right [id number])
[place] Node Bx Breast Cancer
[place] Node Bx Breast Cancer
Operation performed with curative intent: Yes
Tracer(s) to ID [place] Nodes in Non-Neoadjuvant setting: Radioactive Tracer
Tracer(s) to ID [place] Nodes in the Neoadjuvant Setting: N/A
All nodes at end of dye-filled Lymphatic Channel removed: N/A
All Significantly Radioactive Nodes were removed: Yes
All Palpably Suspicious Nodes were Removed: Yes
Bx Proven Pos Nodes Marked Prior to Chemo ID'd & Removed: N/A
--- NOTE | 2024-10-04 12:09 | W.IMMPOSTOP ---
Surgical Immed Post Op Note
-
Primary Surgeon: ENE Martínez MD
Assisting Surgeon:
Pre-op Diagnosis: Right breast cancer
Post-op Diagnosis: Same
Procedure Performed: Bilateral immediate reconstruction of breast with tissue expanders, ADM insertion
Anesthesia Type: General
Specimen / Cultures: Per Dr. Birmingham
Estimated Blood Loss: 10 cc
Complications: None
Operative Findings: As expected
--- NOTE | 2024-10-04 12:09 | OR.RPT ---
Operative Report
Operative Report
Date of surgery 10/04/2024
Surgeon: ENE Martínez MD
Preoperative diagnosis: Right breast cancer
Postoperative diagnosis: Same
Procedure:
1. Bilateral immediate breast reconstruction with tissue expanders
2. Insertion of ADM mesh, bilateral breasts
Complications: None
Anesthesia: General
EBL: 10 cc
Indications for procedure: The patient is a 69-year-old female diagnosed with right sided breast cancer. She was referred by Dr. Birmingham for considerations of breast reconstruction. She desired undergo bilateral mastectomies and as such opted for
bilateral immediate reconstruction with tissue expanders. She understood that this was a staged procedure and her final reconstruction would be the autologous or implant-based reconstruction. Assuming no need for radiation, implant-based
reconstruction is very reasonable. We discussed nipple sparing versus skin sparing mastectomy and she elected for skin sparing mastectomy in order to achieve a lifting and reducing component to the reconstruction. Risk reviewed at length including
hematoma, seroma, infection, device failure. She understood these risk desire to proceed
Procedure detail: Patient was identified preoperatively and the surgical site was confirmed to the bilateral breast. Patient was marked in the upright position and a plan was made for vertical skin sparing mastectomy. All questions were answered
and consents were confirmed. Patient was taken back to the operating placed supine on the table. Anesthesia was induced the patient was prepped and draped in the usual sterile fashion. A timeout for patient safety was performed was confirmed that
bilateral SCDs were placed preoperative antibiotics have been administered. Dr. Birmingham started the procedure first performing the left-sided mastectomy and then the right sided mastectomy. Her operative report will be dictated separately. When I
entered the procedure, the left-sided mastectomy was complete. I inspected the wound and measured the base width of the breast. A 12 cm tissue drying tunnel operator was selected. The drying tunnel operator was then wrapped in an ADM construct. The ADM was first meshed in
a 1-1.5 ratio. This was then sutured in place around the drying tunnel operator using 2-0 Vicryl. The drying tunnel operator was filled with 150 cc of normal saline. Was then fixated to the chest wall using a series of 2-0 silk sutures at the tabs. A pec and serratus
intercostal block was performed with dilute Marcaine. 2 drains were placed and tunneled in the subcutaneous preaxial early line. The wound was then thoroughly irrigated with double antibiotic solution and dilute Betadine and closed in layers with
2-0 Vicryl followed by 3-0 and 4 Monocryl. The exact same procedure was then performed on the right side after the completion of the mastectomy. A 12 cm drying tunnel operator was wrapped and 2 sheets of ADM that were meshed 1-1.5. The wound was thoroughly
irrigated and verified for hemostasis. 2 drains were placed and tunneled. The drying tunnel operator was filled to 150 cc and sutured to the chest wall with silk sutures. The wound was closed in layers with 2-0 Vicryl followed by 3-0 and 4-0 Monocryl. At the
conclusion of the case the patient tolerated the procedure well and was performed out complication. All counts were correct. A surgical bra was placed after dressing the wound with sterile bandages.
--- NOTE | 2024-10-04 14:01 | PTCARENOTE ---
Pt arrived to [facility] from PACU s/p b/l mastectomy with mosaic layer reconstruction. Pt AAOx3, pain 10/17, b/l breast dressings and surgical bra C/D/I, [address], 2 on the right side, and 2 on the left side. Oriented to call berg and room, bed
locked and in lowest position. Call berg within reach.
[2024-10-04] MEDS: D5/0.45%NSS with KCL 20 MEQ 1000 IV (14:15)
--- NOTE | 2024-10-04 15:53 | CM ---
Met with pt and her at bedside
Pt reports she lives in a 2 story home with her ; 3 steps to enter, FF set-up
Independent, ambulates without device, drives
DME - none
SNF/HH - no past hx
Has ride at d/c
PCP - Wallace Umanzor
Pharm - [facility] in [place]
CM consult for VN/drain care
Pt receptive - has no preference
Referral sent in Care Port
Plan - anticipate home with VN, when accepted
[2024-10-04] MEDS: NEURONTIN 100 MG PO ×2 (17:03→22:44)
[2024-10-04] MEDS: ANCEF 5 IV (17:03)
[2024-10-04] MEDS: LOPRESSOR 25 MG PO (20:30)
[2024-10-04] MEDS: VALIUM 5 MG PO (22:51)
[2024-10-05] MEDS: D5/0.45%NSS with KCL 20 MEQ 1000 IV (00:31)
[2024-10-05] MEDS: ANCEF 5 IV ×2 (01:24→09:05)
[2024-10-05 03:05] VITALS: BP 132/92
[2024-10-05] MEDS: TYLENOL 1000 MG PO (06:24)
[2024-10-05 06:34] LABS: Hematocrit 37.8 % (37.0-47.0); Hemoglobin 12.9 g/dL (12.0-16.0)
[2024-10-05 06:59] LABS: Blood Urea Nitrogen 8 mg/dl (7-17); Calcium 8.9 mg/dl (8.4-10.2); Carbon Dioxide 26 mmol/L (22-30); Chloride 101 mmol/L (98-107); Estimated Creatinine Clearance 72 ml/min; Glucose 138 mg/dl (70-99); Potassium 4.8 mmol/L (3.5-5.1); Sodium 133 mmol/L (135-145); eGFR > 60.00
[2024-10-05 07:55] VITALS: BP 119/84
--- NOTE | 2024-10-05 08:53 | CM ---
Addendum entered by Sherly Poole 10/05/24 16:16:
TT from Dr Martínez
Requested call to his office to have Rx sent for patients needs
Called [phone], spoke with Anne-Marie
Given contact information for [facility] VN - Philip at Fax - [phone]
Rx for VN/drain care - start date 10/08/2024
Addendum entered by Sherly Poole 10/05/24 15:28:
Spoke with Mic from [facility] - can accept with start date 10/08
Requesting Rx for VN/drain care with start date of 10/08/24 - fax to [phone], attn Mic
TT sent to Dr Martínez requesting Rx
LM on pts VM - informed [facility] accepted for VN. They are to contact pt in 1-2 days
Plan - home with [facility] VN
F - [phone]
Addendum entered by Sherlyedgardo Poole 10/05/24 13:04:
Spoke with Mic [phone] at [facility]
Updated physician, orders, d/c date - will contact clinical textile conversion manager and return call
Pt reports has transport home -
Given IMM
Plan - home with VN - when accepted
Addendum entered by Sherly Poole 10/05/24 10:35:
[facility] - unable to accept due to staffing
[facility] [phone] - contacted intake Philip - updated with d/c date, PCP, pt needs
Will review to determine if can accept
Original Note:
Pt will need VN when discharged - Referral sent in Care Port yesterday
Spoke with Chelsea at [facility] [phone] - confirmed pt does have a teachable critical care unit nurse available
Per Chelsea will contact clinical textile conversion manager and update if can accept in Care Port
Plan - VN pending - anticipate home with VN
[2024-10-05] MEDS: NEURONTIN 100 MG PO (09:00)
[2024-10-05] MEDS: LOPRESSOR 25 MG PO (09:00)
[2024-10-05] MEDS: ULTRAM 50 MG PO (09:04)
[2024-10-05] MEDS: D5/0.45%NSS with KCL 20 MEQ IV (09:06)
[2024-10-05 11:23] VITALS: BP 144/83
== END 2024-10-05 13:18 | disposition home health service (06) | DRG 580 ==
LOC: 2 SOUTH 07:54
PROVIDERS: Surgery; ADMITTING PHYSICIAN Surgery Plastic and Reconstructive Surgery; FAMILY PHYSICIAN Family Medicine
PROC: 0HTV0ZZ Resection of Bilateral Breast, Open Approach (ICD-10-PCS; 2024-10-04)
PROC: 07B50ZX Excision of Right Axillary Lymphatic, Open Approach, Diagnostic (ICD-10-PCS; 2024-10-04)
PROC: 0HHV0NZ Insertion of Tissue Expander into Bilateral Breast, Open Approach (ICD-10-PCS; 2024-10-04)
DX: C50.311 Malignant neoplasm of lower-inner quadrant of right female breast (principal); I47.19 Other supraventricular tachycardia; I48.0 Paroxysmal atrial fibrillation; Z88.2 Allergy status to sulfonamides; Z79.01 Long term (current) use of anticoagulants; Z80.3 Family history of malignant neoplasm of breast; Z79.899 Other long term (current) drug therapy; Z17.0 Estrogen receptor positive status [ER+]; Z95.818 Presence of other cardiac implants and grafts
CPT/HCPCS: 88307; 88332; 36415; 80048; 82306; 84134; 85014; 85018; 88331; 88342; 93005; C1789; Q4100

== ENCOUNTER 2024-11-07 09:20 | Outpatient (RCR) | payer OTHER, SELFPAY | END 2024-11-07 23:59 | disposition home or self-care (01) | LOC: RPT 09:20 | PROVIDERS: ATTENDING PHYSICIAN Surgery; FAMILY PHYSICIAN Family Medicine | DX: C50.411 Malignant neoplasm of upper-outer quadrant of right female breast (principal); Z73.6 Limitation of activities due to disability; M62.81 Muscle weakness (generalized); Z90.13 Acquired absence of bilateral breasts and nipples | CPT/HCPCS: 97140; 97162 ==

== ENCOUNTER → 2024-11-22 13:20 | Outpatient (REF) | payer OTHER, SELFPAY | LOC: HWRAD 13:20 | PROVIDERS: ATTENDING PHYSICIAN Obstetrics & Gynecology; FAMILY PHYSICIAN Family Medicine | DX: M89.9 Disorder of bone, unspecified (principal); Z78.0 Asymptomatic menopausal state | CPT/HCPCS: 77080 ==

== ENCOUNTER 2024-12-05 09:51 | Outpatient (RCR) | payer OTHER, SELFPAY | END 2024-12-05 23:59 | disposition home or self-care (01) | LOC: RPT 09:51 | PROVIDERS: ATTENDING PHYSICIAN Surgery; FAMILY PHYSICIAN Family Medicine | DX: C50.411 Malignant neoplasm of upper-outer quadrant of right female breast (principal); Z73.6 Limitation of activities due to disability; M62.81 Muscle weakness (generalized); Z90.13 Acquired absence of bilateral breasts and nipples | CPT/HCPCS: 97110; 97112; 97140; 97530 ==

== ENCOUNTER 2024-12-14 06:12 | Day surgery (SDC) | payer OTHER, SELFPAY ==
[2024-12-14] VITALS (9 sets, daily range): BP systolic 121–167; BP diastolic 53–82; BMI 23.5
[2024-12-14] MEDS: NORMOSOL-R/PLASMALYTE-A 1000 IV (11:20)
--- NOTE | 2024-12-14 15:07 | W.IMMPOSTOP ---
Surgical Immed Post Op Note
-
Primary Surgeon: ENE Martínez MD
Assisting Surgeon:
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
Post-op Diagnosis: Same
Procedure Performed: Bilateral tissue optometrist/practice owner removal and insertion of silicone gel implants, fat grafting the bilateral breasts
Anesthesia Type: General
Specimen / Cultures: None
Estimated Blood Loss: 30 cc
Complications: None
Operative Findings: As expected
--- NOTE | 2024-12-14 15:08 | OR.RPT ---
Operative Report
Operative Report
Date of surgery 12/14/2024
Surgeon: ENE Martínez MD
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
Postoperative diagnosis: Same
Procedure:
1. Bilateral removal of tissue expanders
2. Bilateral insertion of silicone gel breast implants
3. Extensive capsulotomies and partial capsulectomies
4. Adjacent tissue transfer 6 x 3, 7 x 3.5, total 42.5 cm�, trunk
5. Fat grafting to the bilateral breasts, 210 cc total
Anesthesia: General
Complications: None
EBL: 30 cc
Specimens: None
Indication for procedure: Patient is a 69-year-old female who underwent bilateral skin sparing mastectomy and immediate reconstruction with tissue expanders for diagnosis of breast cancer. She followed a routine postoperative course and was
sufficiently expanded. She desired stage II reconstruction with silicone gel implants. As such a plan was made for removal of the bilateral tissue standers and insertion of the silicone gel implants. Fat grafting could be performed at that time
and she desired using donor site lateral flanks and medial thighs. Risks of silicone gel implants were reviewed at length including capsular contracture, rupture, ALCL, BII, infection, asymmetry, wrinkling and rippling. Additional risk of fat
grafting including fat necrosis and donor site abnormality were reviewed. Of note she had a loop recorder in her subcutaneous tissues of her left chest wall. She remained in sinus rhythm and her prescription clerk lenses approved removal of the loop recorder
at this surgery. Plan will be for reinsertion following definitive reconstruction. Of note she is not dependent on this cardiac monitoring device. A plan was made for Eliquis hold 48 hours pre and post with her prescription clerk lenses. Risk of holding her
Eliquis were reviewed. A-fib was only intermittent and she has not been in A-fib according to her recorder.
Procedure in detail: Patient was identified preoperatively and the surgical site was confirmed to be the bilateral breast with donor site bilateral flanks and medial thighs. Consents were confirmed all questions were answered. Patient was marked
in the upright position and adjacent tissue transfers were planned for the inferior aspect of the breast reconstruction to modified the mastectomy skin flaps. These were drawn out to eliminate inferior pole skin redundancy. Donor site for fat
grafting were marked out as were the markings for capsulotomies and fat grafting. Patient was taken back to the operating room placed upon the table. Anesthesia was induced and patient was prepped and draped in usual sterile fashion using
ChloraPrep solution. A timeout for patient safety was performed and there was confirmed that preoperative antibiotics administered and bilateral SCDs were in place. Procedure began with the injection 1% lidocaine with epinephrine in the proposed
inframammary fold incision sites. Tumescent was also distributed evenly between the medial thighs and lateral flanks. This was done through a series of poke holes using a 15 blade. Attention was first drawn to the right side where a 6 x 3 cm area
of redundant skin was marked for excision with backcut allowing superior and inferior flap advancement. Capsulotomy was performed and the tissue help desk technician was removed. Extensive capsulotomies were performed at the perimeter of the superior and
medial poles. Partial capsulectomies were performed in areas of redundant ADM. A 535 gel sizer was placed and found to be too large for the pocket. As such the decision was made to proceed with a 415 cc high-profile cohesive silicone gel implant.
Following multiple rounds of irrigation with dilute Betadine solution and meticulous hemostasis, an implant was placed in the right side using a no touch technique and a Best funnel after donning new gloves. The wound was then closed in a series
of layers with 2-0 Vicryl followed by 3-0 and 4-0 Monocryl. Attention was then drawn to the left side where the exact same procedure was performed. A 7 x 3.5 cm excision was planned for redundant mastectomy skin flap with backcut allowing for
inferior and superior skin advancement. Total adjacent tissue transfer from the bilateral breast was 42.5 cm�. A capsulotomy was performed and the tissue help desk technician was removed from the left breast. Extensive capsulotomies performed in the medial
and superior poles and partial capsulectomies were performed in the areas of redundant ADM. Following meticulous hemostasis and multiple rounds of irrigation with Betadine solution, using a no touch technique a 415 cc high-profile silicone gel
cohesive implant was placed in the left side. Wound was closed in layers using 2-0 Vicryl followed by 3 and 4-0 Monocryl. Attention was then drawn to the lateral flanks and medial thighs where lipo aspiration was performed. Approximately 600 cc
of Lipo aspirate was removed divided evenly over the sites. The fat was processed using pure graft and rinsed with lactated Ringer's. A total of 210 cc in total was available for injection of the bilateral breast. As such this was divided evenly
over areas of contour irregularity or volume deficiency. All poke holes were closed with 5-0 fast. The patient tolerated the procedure well and was performed out complication. All counts were correct at the end the case. She was extubated taken
the PACU for further care.
== END 2024-12-14 16:40 | disposition home or self-care (01) ==
LOC: SDS 06:12
PROVIDERS: ATTENDING PHYSICIAN Surgery Plastic and Reconstructive Surgery
DX: Z90.13 Acquired absence of bilateral breasts and nipples (principal); Z85.3 Personal history of malignant neoplasm of breast
CPT/HCPCS: 11970; 19370; 15771; 14001

== ENCOUNTER → 2025-01-04 11:21 | Outpatient (REF) | payer SELFPAY | LOC: HWRAD 11:21 | PROVIDERS: ATTENDING PHYSICIAN Internal Medicine Cardiovascular Disease; FAMILY PHYSICIAN Family Medicine | DX: I48.0 Paroxysmal atrial fibrillation (principal) | CPT/HCPCS: 75571 ==

== ENCOUNTER 2025-01-05 08:56 | Outpatient (RCR) | payer OTHER, SELFPAY | END 2025-01-05 23:59 | disposition home or self-care (01) | LOC: RPT 08:56 | PROVIDERS: ATTENDING PHYSICIAN Surgery Plastic and Reconstructive Surgery; FAMILY PHYSICIAN Family Medicine | DX: C50.411 Malignant neoplasm of upper-outer quadrant of right female breast (principal); Z73.6 Limitation of activities due to disability; M62.81 Muscle weakness (generalized); Z90.13 Acquired absence of bilateral breasts and nipples | CPT/HCPCS: 97140; 97164 ==

== ENCOUNTER 2025-02-01 10:15 | Outpatient (RCR) | payer OTHER, SELFPAY | END 2025-02-01 23:59 | disposition home or self-care (01) | LOC: RPT 10:15 | PROVIDERS: ATTENDING PHYSICIAN Surgery Plastic and Reconstructive Surgery; FAMILY PHYSICIAN Family Medicine | DX: C50.411 Malignant neoplasm of upper-outer quadrant of right female breast (principal); M62.81 Muscle weakness (generalized); Z73.6 Limitation of activities due to disability; Z90.13 Acquired absence of bilateral breasts and nipples | CPT/HCPCS: 97110; 97112; 97140; 97530 ==

== ENCOUNTER 2025-02-22 11:20 | Outpatient (RCR) | payer OTHER, SELFPAY | END 2025-03-09 14:38 | disposition home or self-care (01) | LOC: RPT 11:20 | PROVIDERS: ATTENDING PHYSICIAN Surgery Plastic and Reconstructive Surgery; FAMILY PHYSICIAN Family Medicine | DX: C50.411 Malignant neoplasm of upper-outer quadrant of right female breast (principal); M62.81 Muscle weakness (generalized); Z73.6 Limitation of activities due to disability; Z90.13 Acquired absence of bilateral breasts and nipples | CPT/HCPCS: 97110; 97140; 97530 ==

== ENCOUNTER → 2025-04-11 14:34 | Outpatient (REF) | payer OTHER, SELFPAY ==
[2025-04-11 15:54] LABS: Hematocrit 37.2 % (37.0-47.0); Hemoglobin 12.4 g/dL (12.0-16.0); Mean Corp Hgb Conc. 33.3 g/dL (33.0-37.0); Mean Corpuscular Volume 93.0 fL (81.0-99.0); Nucleated Red Blood Cells % 0 %; Platelet Count 248 10^3/uL (130-400); Red Cell Dist. Width 13.5 % (11.5-14.5)
[2025-04-11 17:24] LABS: ALT (SGPT) 22 U/L (0-35); AST (SGOT) 25 U/L (14-36); Albumin 4.3 g/dl (3.5-5.0); Alkaline Phosphatase 65 U/L (38-126); Blood Urea Nitrogen 19 mg/dl (7-17); Calcium 8.8 mg/dl (8.4-10.2); Carbon Dioxide 27 mmol/L (22-30); Chloride 98 mmol/L (98-107); Glucose 113 mg/dl (70-99); Potassium 4.3 mmol/L (3.5-5.1); Sodium 131 mmol/L (135-145); Total Protein 6.8 g/dl (6.3-8.2); eGFR > 60.00
== END ==
LOC: REG 14:34
PROVIDERS: ATTENDING PHYSICIAN Surgery Plastic and Reconstructive Surgery; FAMILY PHYSICIAN Family Medicine
DX: Z01.812 Encounter for preprocedural laboratory examination (principal)
CPT/HCPCS: 36415; 80053; 85025

== ENCOUNTER → 2025-04-13 08:45 | Outpatient (REF) | payer OTHER, SELFPAY | LOC: RAD 08:45 | PROVIDERS: ATTENDING PHYSICIAN Surgery Plastic and Reconstructive Surgery; FAMILY PHYSICIAN Family Medicine | DX: T85.730A Infection and inflammatory reaction due to ventricular intracranial (communicating) shunt, initial encounter (principal) | CPT/HCPCS: 71260; Q9967 ==

== ENCOUNTER → 2025-04-17 12:49 | Outpatient (REF) | payer OTHER, SELFPAY | LOC: HWRAD 12:49 | PROVIDERS: ATTENDING PHYSICIAN Nurse Practitioner Family; FAMILY PHYSICIAN Family Medicine | DX: R35.0 Frequency of micturition (principal); R10.2 Pelvic and perineal pain | CPT/HCPCS: 76770; 76830; 76856 ==

== ENCOUNTER 2025-04-19 06:22 | Day surgery (SDC) | payer OTHER, SELFPAY ==
[2025-04-19] VITALS (11 sets, daily range): BP systolic 98–147; BP diastolic 62–89; BMI 22.8
[2025-04-19] MEDS: NORMOSOL-R/PLASMALYTE-A 1000 IV (11:25)
[2025-04-19] MEDS: TYLENOL 1000 MG PO (11:37)
[2025-04-19] MEDS: DILAUDID 0.25 MG IV (14:17)
--- NOTE | 2025-04-19 17:25 | W.IMMPOSTOP ---
Surgical Immed Post Op Note
-
Primary Surgeon: ENE Martínez MD
Assisting Surgeon:
Pre-op Diagnosis: History of breast cancer, surgically acquired absence of bilateral breast, seroma
Post-op Diagnosis: Same
Procedure Performed: Removal of right breast implant, total capsulectomy, reinsertion of right breast implant for breast reconstruction
Anesthesia Type: General
Specimen / Cultures: Right capsule breast, right seroma fluid for culture
Estimated Blood Loss: 30 cc
Complications: None
Operative Findings: As expected
--- NOTE | 2025-04-19 17:25 | OR.RPT ---
Operative Report
Operative Report
Date of surgery: 04/19/2025
Surgeon: ENE Martínez MD
Preoperative diagnosis:
1. History of breast cancer
2. 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
3. Seroma
4. Breast implant status
Postoperative diagnosis: Same
Procedure:
1. Removal of right breast implant
2. Total capsulectomy on the right breast
3. Reinsertion of right breast silicone gel implant for breast reconstruction
Anesthesia: General
Complications: None
EBL: 30 cc
Indication for procedure: Patient is a 69-year-old female who underwent bilateral mastectomy and staged conveyor feeder offbearer to implant reconstruction. She followed a routine postoperative course until approximately 1 month postoperatively when she got the flu
vaccine. This developed an inflammatory reaction of her right breast implant. This may be c s s representative of a superimposed capsular contracture. This resulted in erythema and seroma development. She remained afebrile and there was no infectious
sequela. A plan was made for removal and replacement of the right implant with drainage of the seroma pocket. A capsulectomy will be performed for any superimposed capsular contracture. Risks of the procedure were reviewed at length including
implant failure, recurrent capsular contracture, infection, rupture, recurrent seroma. She understood these risks and desired to proceed
Procedure in detail: Patient was identified preoperatively and the surgical site was confirmed to be the right breast. All questions were answered and consents were confirmed. Patient was marked in the upright position. She was then taken back to
the operating room and placed in the supine position. Anesthesia was induced and the patient was prepped and draped in the usual sterile fashion using ChloraPrep solution. Timeout for patient safety was performed was confirmed the bilateral SCDs
were in place and preoperative antibiotics administered. Procedure began first with the injection 1% lidocaine with epinephrine in the proposed inframammary incision on the right breast. A 15 blade was then used to incise the prior scar and
dissection continued with Bovie electrocautery. A seromatous fluid pocket was encountered and fluid was sent for culture. This fluid was drained and the implant was removed. There was an inflammatory thickened capsule and a prepectoral position.
As such a total en bloc capsulectomy was performed using Bovie electrocautery. This was sent for permanent pathology. Meticulous hemostasis was ensured and a new implant of the exact same size was then placed into the pocket. This was silicone
gel Sientra implant. The pocket was irrigated with dilute Betadine and antibiotic solution prior. A 'no touch' technique was used. A drain was placed for removal in the postoperative period. Patient tolerated the procedure well was performed out
complication, all counts were correct at the end the case. She was explained taken the PACU further care.
== END 2025-04-19 17:05 | disposition home or self-care (01) ==
LOC: SDS 06:22
PROVIDERS: ATTENDING PHYSICIAN Surgery Plastic and Reconstructive Surgery
DX: N60.31 Fibrosclerosis of right breast (principal); N64.89 Other specified disorders of breast; Z85.3 Personal history of malignant neoplasm of breast; Z90.13 Acquired absence of bilateral breasts and nipples; Z98.82 Breast implant status
CPT/HCPCS: 19342; 87070; 87075; 87205; 88304; C1789

== ENCOUNTER 2025-05-30 07:12 | Outpatient (RCR) | payer OTHER, SELFPAY | END 2025-05-30 23:59 | disposition home or self-care (01) | LOC: RPT 07:12 | PROVIDERS: ATTENDING PHYSICIAN Surgery Plastic and Reconstructive Surgery; FAMILY PHYSICIAN Family Medicine | DX: I97.2 Postmastectomy lymphedema syndrome (principal); C50.911 Malignant neoplasm of unspecified site of right female breast; Z73.6 Limitation of activities due to disability; Z98.890 Other specified postprocedural states; Z90.13 Acquired absence of bilateral breasts and nipples | CPT/HCPCS: 97110; 97140; 97162; 97530 ==

== ENCOUNTER 2025-06-28 07:09 | Outpatient (RCR) | payer OTHER, SELFPAY | END 2025-06-28 23:59 | disposition home or self-care (01) | LOC: RPT 07:09 | PROVIDERS: ATTENDING PHYSICIAN Surgery Plastic and Reconstructive Surgery; FAMILY PHYSICIAN Family Medicine | DX: I97.2 Postmastectomy lymphedema syndrome (principal); C50.911 Malignant neoplasm of unspecified site of right female breast; Z73.6 Limitation of activities due to disability; Z98.890 Other specified postprocedural states; Z90.13 Acquired absence of bilateral breasts and nipples | CPT/HCPCS: 97110; 97112; 97140 ==

== ENCOUNTER 2025-07-24 07:37 | Outpatient (RCR) | payer OTHER, SELFPAY | END 2025-07-24 11:18 | disposition home or self-care (01) | LOC: RPT 07:37 | PROVIDERS: ATTENDING PHYSICIAN Surgery Plastic and Reconstructive Surgery; FAMILY PHYSICIAN Family Medicine | DX: I97.2 Postmastectomy lymphedema syndrome (principal); C50.911 Malignant neoplasm of unspecified site of right female breast; Z73.6 Limitation of activities due to disability; Z98.890 Other specified postprocedural states; Z90.13 Acquired absence of bilateral breasts and nipples | CPT/HCPCS: 97112; 97140; 97530 ==

== ENCOUNTER 2025-08-01 06:05 | Day surgery (SDC) | payer OTHER, SELFPAY ==
[2025-07-26 11:50] VITALS: BMI 23.9
[2025-07-26 12:43] LABS: Hematocrit 39.8 % (37.0-47.0); Hemoglobin 13.7 g/dL (12.0-16.0); Mean Corp Hgb Conc. 34.4 g/dL (33.0-37.0); Mean Corpuscular Volume 92.8 fL (81.0-99.0); Nucleated Red Blood Cells % 0 %; Platelet Count 228 10^3/uL (130-400); Red Cell Dist. Width 13.4 % (11.5-14.5)
[2025-07-26 12:47] LABS: INR 1.15; PT 14.5 Sec (11.4-14.6)
[2025-07-26 13:18] LABS: ALT (SGPT) 21 U/L (0-35); AST (SGOT) 26 U/L (14-36); Albumin 4.7 g/dl (3.5-5.0); Alkaline Phosphatase 70 U/L (38-126); Blood Urea Nitrogen 14 mg/dl (7-17); Calcium 9.5 mg/dl (8.4-10.2); Carbon Dioxide 27 mmol/L (22-30); Chloride 100 mmol/L (98-107); Estimated Creatinine Clearance 72 ml/min; Glucose 94 mg/dl (70-99); Magnesium 2.1 mg/dl (1.6-2.3); Potassium 4.5 mmol/L (3.5-5.1); Sodium 133 mmol/L (135-145); Total Protein 7.6 g/dl (6.3-8.2); eGFR > 60.00
[2025-08-01] VITALS (13 sets, daily range): BP systolic 105–158; BP diastolic 55–101
[2025-08-01] MEDS: NSS 500 IV (07:06)
--- NOTE | 2025-08-01 07:53 | ITS.CL.ABL ---
Community Outreach Coordinator - Ablation
Ablation
Procedure Report:
ELECTROPHYSIOLOGIC STUDY AND POSSIBLE ABLATION
DATE: August 01, 2025
Primary Care Provider: Dr. Wallace Umanzor
Symptomatic Atrial Fibrillation.
She has had persistent atrial fibrillation as well as atrial tachycardias
Of note she has significant biatrial enlargement.
Echocardiogram May 21, 2022 shows severely dilated left atrium and at least moderately dilated right atrium. Normal LV size and function, normal wall thickness. There is moderate MR and mild TR.
Echocardiogram June 07, 2024 finds LVEF 50-55%, mild to moderate mitral regurgitation, mild TR instilled severely dilated left atrium and severely dilated right atrium
HISTORY: See H and P.
Symptomatic AF and AT, poorly controlled with attempted medical therapy
PVI January 21, 2021 and she has had recurrence of symptomatic atrial arrhythmias including atrial fibrillation and atrial tachycardia.
She was taken back to the laboratory December 31, 2022 for reisolation of the pulmonary veins, left atrial posterior wall isolation as well as mapping and ablation of a left atrial tachycardia ( annulus of the mitral valve at approximately 7:00 in TONI 30
degrees). Subsequently she developed recurrences of atrial arrhythmia and return to the laboratory for me mapping and ablation.
She was diagnosed with breast cancer, started on letrozole. She follows with Dr. Anup Dolan. She underwent bilateral mastectomy 10/04/2024 and then reconstruction with implants and fat grafting 12/14/2024. Plan is to continue letrozole for 5
years. There is no plan for chemo/radiation.�
HAS-BLED: 1
Age > 65 yrs
CHADSVASc: 2
age
Gender
PRESENTING RHYTHM: AF
HISTORY: See H and P.
Symptomatic AF, poorly controlled with attempted medical therapy.
ANTICOAGULATION: Eliquis 5 mg twice daily
'TIME-OUT': called and confirmed.
SEDATION/ANESTHESIA: provided via the anesthesia department using general anesthesia.
PROCEDURE:
Ultrasound Guidance with real-time visualization of needle insertion and vessel patency performed by tn for femoral venous Vascular Access.
Under real-time US guidance, the needle was advanced with negative pressure into the vein. The needle was seen entering the vessel lumen with a good return of dark red flow, the syringe was removed, non-pulsatile, dark red blood low was noted and
the wire was passed without difficulty, then the needle was removed. US confirmed the wire was in the vein, not going into an artery,
Images were taken and saved for the patient's permanent record. Imaging findings typical femoral venous anatomy. Direct visualization of needle puncture into the femoral vein was observed and recorded.
A decapolar CS catheter was placed within the CS for mapping and pacing.
The intracardiac ultrasound catheter was positioned in the RA for continuous intracardiac ultrasound imaging.
Heparin bolus and infusion to target ACT at 300 -350 seconds was administered. Transseptal puncture was performed. This entailed advancing a sheath with dilator into the superior vena cava and withdrawing both (monitoring intracardiac ultrasound,
fluoroscopy and tip pressure) with the tip oriented toward the atrial septum. The fossa ovalis was engaged (indicated by sudden displacement of the sheath tip as well as tenting of the fossa seen on intracardiac ultrasound).
Transseptal puncture was performed. Left atrial catheter position was confirmed by echocardiographic imaging, pressure monitoring (LA mean pressure 10 mm Hg) and fluoroscopy. The sheath was advanced over the dilator and positioned in the left
atrium.
The Sphere 9 multipolar mapping/ablation Sphere-9 catheter was positioned through the transseptal sheath for high density mapping.
Geometry and voltage mapping was performed using the [employer] mapping system for three-dimensional electroanatomical mapping.
Catheter positioning was guided and confirmed using both I.C.E. and fluoroscopy.
High density electroanatomical three-dimensional mapping demonstrated four PVs: LSPV, LIPV, RSPV, RIPV.
Intracardiac echocardiogram demonstrates there is marked/severe biatrial enlargement and this is consistent with transthoracic echocardiogram from 2021 and 2023.
Ablation strategy included PVI as well as mapping for extra PV contributors to atrial fibrillation which would also be targeted if present.
There is electrical reconnection at the right inferior pulmonary vein towards its inferior septal quadrant. This was ablated using pulsed electric field energy.
After accomplishing pulmonary venous isolation, mapping identified additional areas likely to be extra PV contributors to atrial fibrillation. These areas demonstrated patchy low voltage as well as complex fractionated electrograms. These areas can
be sites for the formation of rotors which can drive and maintain atrial fibrillation. These areas are known to be significant contributors to initiation and perpetuation of atrial fibrillation.
Additional energy applications/additional ablation sets targeted extra PV contributors to atrial fibrillation.
Targets for additional PFA ablation included:
LA posterior wall targeted with pulsed electric field energy isolating the posterior wall of the left atrium
Posterior wall isolation was attempted at her ablation in 2023 and at today's study there is reconnection which is ablated and reisolated using PFA today
After ablation of the posterior wall, additional targets were addressed:
LA inferior floor
The ridge of tissue between the left atrial appendage and the left sided pulmonary veins (Ligament of Enrique)
These areas were ablated using pulsed electric field energy eliminating the extra PV contributors to atrial fibrillation.
Cardioversion with 100 J restored sinus rhythm.
Programmed electrostimulation including burst atrial pacing as well the delivery of decremental extrastimuli down to atrial effective refractory period and no sustained arrhythmias could be induced.
Once catheters were removed and Vascade was used to obtain hemostasis at the right groin patient reverted back to atrial fibrillation.
100 J shock restored sinus rhythm which was then maintained.
I.C.E. :
Pre-Ablation Post-Ablation
LVEF: 55 % 55 %
WMA: none none
Pericardial effusion: trace trace
LA Pressure (mmHg) 10 15
COMPLICATIONS:
None
SUMMARY:
- Mapping and ablation to isolate the PVs resulting in electrical isolation of the pulmonary veins
- Additional AF ablation sets X 3 after PVI (LA posterior wall, Inf/floor of the LA posterior wall, ligament of Enrique) resulting in elimination of the targeted extra PV contributors to atrial fibrillation
- 3-D Electroanatomical Mapping
- Intracardiac Ultrasound
- Ultrasound guidance for vascular access
Post ablation, I discussed today's findings and results with the patient's , Harry.
RECOMMENDATIONS:
- Observe in monitored bed.
- Maintain oral anticoagulation.
- Given that she has marked biatrial enlargement I think it will be difficult for her to maintain sinus rhythm long-term. We may be able to better maintain sinus rhythm with the use of antiarrhythmic drug therapy but antiarrhythmic drug therapy in
the past has been difficult with her. She is poorly tolerated a number of antiarrhythmic drugs. She refuses consideration for dofetilide and amiodarone. While she seems to tolerate very low-dose sotalol at 40 mg twice daily, once this was
uptitrated to 80 and certainly once it was titrated up to 120 mg twice daily she felt very poorly on sotalol. We have previously had a discussion in the office that if today's ablation fails to maintain sinus rhythm our strategy would be allowing
atrial fibrillation to become permanent with a plan for rate control and continued oral anticoagulation.
- Office visit with me is scheduled for November 09, 2025
Copy to:
Primary Care Provider: Dr. Wallace Umanzor
[2025-08-01 08:43] LABS: ACT-LR - POC 343 Seconds (116-155)
[2025-08-01] MEDS: ANESTHETIC LOZENGE 1 LOZENGE PO (09:57)
[2025-08-01] MEDS: TYLENOL 650 MG PO (09:57)
[2025-08-01 10:26] LABS: ACT-LR - POC > 397 Seconds (116-155)
[2025-08-01] MEDS: TOPROL XL 25 MG PO (12:09)
--- NOTE | 2025-08-01 13:10 | W.PN.UPDATE ---
Update Note
Progress Note Update
Pt seen post PFA. Right groin with vascade closure, no ht/bleeding, non tender. OOB ambulating. Post EKG SB w/1st deg AVB, no acute changes. She did have brief AF that converted to ST low 100s. Given metoprolol xl 25mg x1 with good HR control.
Remains in SR at this time. Resume eliquis today. Followup at [facility] as scheduled. Home today if groin site/tele remain stable.
== END 2025-08-01 13:08 | disposition home or self-care (01) ==
LOC: CATH 06:05
PROVIDERS: ATTENDING PHYSICIAN Internal Medicine Cardiovascular Disease; FAMILY PHYSICIAN Family Medicine
DX: I48.19 Other persistent atrial fibrillation (principal); Z79.01 Long term (current) use of anticoagulants; Z85.3 Personal history of malignant neoplasm of breast; Z90.13 Acquired absence of bilateral breasts and nipples; Z79.811 Long term (current) use of aromatase inhibitors; I47.19 Other supraventricular tachycardia; I08.1 Rheumatic disorders of both mitral and tricuspid valves; Z85.828 Personal history of other malignant neoplasm of skin; Z79.899 Other long term (current) drug therapy; M81.0 Age-related osteoporosis without current pathological fracture; E87.1 Hypo-osmolality and hyponatremia; I44.0 Atrioventricular block, first degree; I48.92 Unspecified atrial flutter; M19.90 Unspecified osteoarthritis, unspecified site; Z86.0100 Personal history of colon polyps, unspecified; Z88.2 Allergy status to sulfonamides; Z91.030 Bee allergy status; Z91.040 Latex allergy status; Z98.82 Breast implant status
CPT/HCPCS: C1894; C1733; C1766; C1730; C1892; C1769; 36415; 80053; 83735; 85025; 85347; 85610; 86850; 86900; 86901; 93005; 93656; 93657; C1760